=== PATIENT | male | born 1990 ===

== ENCOUNTER 2024-09-09 10:29 | Day surgery (SDC) | payer OTHER ==
[~2024-09-09 10:29] MED LIST: Midazolam 1 MG/ML 2 ML SDV ONE; Ondansetron 4 MG/2 ML SDV ONE; Propofol 200 MG/20 ML SDV ONE; Rocuronium 50 MG/5 ML Vial ONE; Ropivacaine 0.5% 5 MG/ML 30 ML SDV ONE; Sodium Chloride 0.9% 10 ML Syringe FLUSH PRN; Sodium Chloride 0.9% 10 ML Syringe FLUSH SCH; dexmedeTOMIDine HCl 200 MCG/2 ML SDV ONE; fentaNYL 100 MCG/2 ML SDV ONE
[2024-09-09] MEDS: Lactated Ringers 1,000 ML IV SCH (10:50)
[2024-09-09] MEDS ORDERED: Bupivacaine 0.25% 10 ML SDV ONE (10:50)
[2024-09-09] MEDS ORDERED: fentaNYL 100 MCG/2 ML SDV ONE (12:02)
[2024-09-09] MEDS ORDERED: ceFAZolin 2 GM Vial ONE (12:14)
[2024-09-09] MEDS ORDERED: Lactated Ringers 1,000 ML ONE (12:15)
[2024-09-09] MEDS ORDERED: Dexamethasone 4 MG/ML 5 ML MDV ONE (12:19)
[2024-09-09] MEDS ORDERED: ePHEDrine 50 MG/ML SDV ONE (12:26)
[2024-09-09] MEDS ORDERED: HYDROmorphone 0.5 MG/0.5 ML Syringe IVPUSH PRN (12:40)
[2024-09-09] MEDS ORDERED: Ondansetron 4 MG/2 ML SDV IVPUSH PRN (12:40)
[2024-09-09] MEDS ORDERED: fentaNYL 100 MCG/2 ML SDV IVPUSH PRN (12:40)
[2024-09-09] MEDS: EPINEPHrine 1 MG/ML SDV ONE (12:44)
[2024-09-09] MEDS ORDERED: Sugammadex Sodium 200 MG/2 ML VIAL IV ONE (12:51)
[2024-09-09] MEDS ORDERED: Ketorolac 30 MG/ML SDV ONE (12:51)
== END 2024-09-09 14:15 | disposition home or self-care (01) ==
LOC: JD.SDS 10:29
PROVIDERS: ATTEND Orthopaedic Surgery
DX: S43.431A Superior glenoid labrum lesion of right shoulder, initial encounter (principal); I10 Essential (primary) hypertension; Z88.2 Allergy status to sulfonamides; Z87.891 Personal history of nicotine dependence; Z79.899 Other long term (current) drug therapy
CPT/HCPCS: 29807; 29828; 64415; C1713; J0171; J0665; J0690; J1100; J1885; J2250; J2405; J2704; J2795; J3010; J7120; 01630; J3490